=== PATIENT | female | born 1980 | race Two or more races ===

== ENCOUNTER 2020-02-01 03:27 | Emergency (ER) | payer SELFPAY ==
[~2020-02-01] VITALS: Ht 154.9 cm; Wt 66.0 kg
[2020-02-01] MEDS ORDERED: SODIUM CHLORIDE 0.9% 1,000 ML IV ONE ×2 (03:45→10:30)
[2020-02-01] MEDS ORDERED: KETOROLAC TROMETHAMINE 30 MG/ML VIAL IVP ONE (03:45)
[2020-02-01] MEDS ORDERED: IOVERSOL 350 MG/ML 100 ML VIAL ONE (03:53)
[2020-02-01] MEDS ORDERED: SODIUM CHLORIDE 0.9% 100 ML ONE (03:53)
[2020-02-01 04:17] LABS: BASOPHILS % (AUTO) 0.7 % (0.0-2.0); EOSINOPHILS % (AUTO) 1.8 % (1.0-6.0); HEMATOCRIT 42.9 % (36-46); HEMOGLOBIN 14.9 g/dL (12.0-16.0); MEAN CORPUSCULAR HGB CONC 34.6 G/dL (31.0-37.0); MEAN CORPUSCULAR VOLUME 81 fL (80-100); MONOCYTES # (AUTO) 1.1 K/uL (0.1-1.0); MONOCYTES % (AUTO) 7.3 % (2.0-9.0); NEUTROPHILS # (AUTO) 10.4 K/uL (1.8-7.7); NEUTROPHILS % (AUTO) 70.2 % (40.0-70.0); PLATELET COUNT (AUTO) 413 K/uL (150-450); RED BLOOD CELL COUNT(AUTO) 5.31 MIL/uL (4.00-5.20); RED CELL DISTRIBUTION WIDTH 12.5 % (11.5-14.5)
[2020-02-01 04:53] LABS: ALANINE AMINOTRANSFERASE 34 U/L (12-78); ALBUMIN 4.1 g/dL (3.4-5.0); ALKALINE PHOSPHATASE 130 U/L (46-116); ANION GAP 8 mmol/L (8-16); ASPARTATE AMINOTRANSFERASE 18 U/L (15-37); BILIRUBIN,TOTAL 0.7 mg/dL (0.1-1.0); CALCIUM, TOTAL 9.7 mg/dL (8.8-10.5); CARBON DIOXIDE 29 mmol/L (22-29); CHLORIDE 96 mmol/L (98-107); CREATININE 0.81 mg/dL (0.60-1.30); GLOMERULAR FILTR. RATE CALC > 60 mL/min (>60); GLUCOSE,RANDOM 119 mg/dL (70-110); LIPASE 90 U/L (73-393); SODIUM SERUM 133 mmol/L (136-145); TOTAL PROTEIN, SERUM 9.3 g/dL (6.4-8.2); UREA NITROGEN, BLOOD 8 mg/dL (7-18)
[2020-02-01 04:56] LABS: POTASSIUM 2.6 mmol/L (3.5-5.1)
[2020-02-01 05:05] LABS: HCG,QUANTITATIVE 1 mIU/mL (0-6)
[2020-02-01] MEDS ORDERED: POTASSIUM CHLORIDE 20 MEQ ER TABLET PO PRN (05:15)
[2020-02-01] MEDS: POTASSIUM CHL 10 MEQ/WATER 50 ML IV PRN ×4 (06:15→11:11)
[2020-02-01 06:55] LABS: APPEARANCE,URINE CLOUDY (CLEAR); BILIRUBIN,URINE NEGATIVE (NEGATIVE); GLUCOSE, URINE (UA) NEGATIVE (NEGATIVE); KETONES,URINE NEGATIVE (NEGATIVE); NITRATE,URINE POSITIVE (NEGATIVE); OCCULT BLOOD,URINE NEGATIVE (NEGATIVE); PH,URINE 6.5 (5.0-8.0); PROTEIN,URINE NEGATIVE (NEGATIVE); UROBILINOGEN,URINE 0.2 mg/dL (<=1.0)
[2020-02-01 06:59] LABS: LEUKOCYTE ESTERASE ,URINE MODERATE (NEGATIVE)
[2020-02-01 07:00] LABS: BACTERIA,URINE Many /HPF (None Seen); RBC,URINE 0-2 /HPF (0-2); SQUAMOUS EPITHELIAL CELL,UR Rare /LPF (None Seen)
[2020-02-01] MEDS ORDERED: NITROFURANTOIN MACROCRYSTAL 100 MG CAPSULE PO ONE (07:15)
[2020-02-01] MEDS ORDERED: CefTRIAXone SODIUM 1 GM/VIAL IM ONE (13:45)
[2020-02-01] MEDS ORDERED: DOXYCYCLINE HYCLATE 100 MG TABLET PO ONE (13:45)
[2020-02-01] MEDS ORDERED: LIDOCAINE 1% 10 ML VIAL INJ ONE ×3 (14:00)
[2020-02-01 17:44] VITALS: BP 141/96
== END 2020-02-01 17:48 | disposition home or self-care (01) ==
LOC: EMS 03:27
DX: N70.93 Salpingitis and oophoritis, unspecified (principal); R10.32 Left lower quadrant pain; E87.6 Hypokalemia; F17.210 Nicotine dependence, cigarettes, uncomplicated; F12.90 Cannabis use, unspecified, uncomplicated; Z88.0 Allergy status to penicillin
CPT/HCPCS: 36415; 74177; 76830; 76856; 80053; 81001; 83690; 84132; 84702; 85025; 87086; 87491; 87591; 93005; 96361; 96365; 96366; 96372; 96375; 99285; J0696; J1885; J3480; J3490; J7030; J7050; Q9967

== ENCOUNTER 2020-02-08 16:22 | Emergency (ER) | payer SELFPAY ==
[~2020-02-08] VITALS: Ht 154.9 cm; Wt 68.2 kg
[2020-02-08 16:39] VITALS: BP 154/96
== END 2020-02-08 17:49 | disposition home or self-care (01) ==
LOC: EMS 16:27
DX: A64 Unspecified sexually transmitted disease (principal); F12.90 Cannabis use, unspecified, uncomplicated; F17.210 Nicotine dependence, cigarettes, uncomplicated; Z88.0 Allergy status to penicillin
CPT/HCPCS: 87491; 87591

== ENCOUNTER 2021-06-27 02:35 | Emergency (ER) | payer MEDICAID ==
[~2021-06-27] VITALS: Ht 157.5 cm; Wt 72.1 kg
[2021-06-27 02:36] VITALS: BP 172/107
[2021-06-27] MEDS ORDERED: CLIN-142 PO (03:12)
[2021-06-27] MEDS ORDERED: CLINDAMYCIN HCL 150 MG CAPSULE PO ONE (03:15)
[2021-06-27] MEDS ORDERED: KETOROLAC TROMETHAMINE 30 MG/ML VIAL IM ONE (03:15)
== END 2021-06-27 03:40 | disposition home or self-care (01) ==
LOC: EMS 02:36
DX: K03.81 Cracked tooth (principal); F17.210 Nicotine dependence, cigarettes, uncomplicated; F12.90 Cannabis use, unspecified, uncomplicated; F15.90 Other stimulant use, unspecified, uncomplicated; Z88.0 Allergy status to penicillin
CPT/HCPCS: 81025; 96372; 99283; J1885

== ENCOUNTER 2022-10-19 06:25 | Emergency (ER) | payer MEDICAID ==
[~2022-10-19] VITALS: Ht 157.5 cm; Wt 75.9 kg
[~2022-10-19 06:25] MED LIST: CLIN-142 PO
[2022-10-19] MEDS ORDERED: TraMADol HCL 50 MG TABLET PO ONE (06:45)
[2022-10-19 06:59] LABS: BASOPHILS % (AUTO) 0.5 % (0.0-2.0); EOSINOPHILS % (AUTO) 0.8 % (1.0-6.0); HEMATOCRIT 36.2 % (36-46); HEMOGLOBIN 11.9 g/dL (12.0-16.0); LYMPHOCYTES # (AUTO) 1.2 K/uL (1.0-4.8); MEAN CORPUSCULAR HEMOGLOBIN 26.3 pg (26.0-34.0); MEAN CORPUSCULAR HGB CONC 32.9 G/dL (31.0-37.0); MEAN CORPUSCULAR VOLUME 80 fL (80-100); MONOCYTES # (AUTO) 0.5 K/uL (0.1-1.0); MONOCYTES % (AUTO) 8.1 % (2.0-9.0); NEUTROPHILS # (AUTO) 4.8 K/uL (1.8-7.7); NEUTROPHILS % (AUTO) 72.6 % (40.0-70.0); PLATELET COUNT (AUTO) 492 K/uL (150-450); RED BLOOD CELL COUNT(AUTO) 4.53 MIL/uL (4.00-5.20); RED CELL DISTRIBUTION WIDTH 13.2 % (11.5-14.5)
[2022-10-19 07:12] LABS: ANION GAP 8 mmol/L (8-16); CALCIUM, TOTAL 8.5 mg/dL (8.8-10.5); CARBON DIOXIDE 28 mmol/L (22-29); CHLORIDE 102 mmol/L (98-107); CREATININE 0.88 mg/dL (0.60-1.30); GLOMERULAR FILTR. RATE CALC > 60 mL/min (>60); GLUCOSE,RANDOM 149 mg/dL (70-110); POTASSIUM 3.8 mmol/L (3.5-5.1); SODIUM SERUM 137 mmol/L (136-145)
[2022-10-19 07:17] LABS: ALANINE AMINOTRANSFERASE 34 U/L (12-78); ALKALINE PHOSPHATASE 136 U/L (46-116); ASPARTATE AMINOTRANSFERASE 31 U/L (15-37); BILIRUBIN,TOTAL 0.3 mg/dL (0.1-1.0); TOTAL PROTEIN, SERUM 7.4 g/dL (6.4-8.2)
[2022-10-19 08:51] VITALS: BP 150/79; PULSE 96; RESP 16; TEMP 98.6
[2022-10-19] MEDS ORDERED: IBUP-1492 PO (08:52)
== END 2022-10-19 09:01 | disposition home or self-care (01) ==
LOC: EMS 06:25
DX: M79.661 Pain in right lower leg (principal); S86.891A Other injury of other muscle(s) and tendon(s) at lower leg level, right leg, initial encounter; F15.10 Other stimulant abuse, uncomplicated; F17.210 Nicotine dependence, cigarettes, uncomplicated; F12.90 Cannabis use, unspecified, uncomplicated; Z88.0 Allergy status to penicillin; X58.XXXA Exposure to other specified factors, initial encounter; Y93.89 Activity, other specified; Y92.89 Other specified places as the place of occurrence of the external cause; Y99.8 Other external cause status
CPT/HCPCS: 80053; 85025; 85379; 93971; 99284

== ENCOUNTER 2022-11-03 18:37 | Emergency (ER) | payer MEDICAID ==
[~2022-11-03] VITALS: Ht 157.5 cm; Wt 77.3 kg
[~2022-11-03 18:37] MED LIST changes: +IBUP-1492 PO
[2022-11-03 18:50] VITALS: BP 148/98; PULSE 99; RESP 20; TEMP 98.8
== END 2022-11-03 21:00 | disposition left against medical advice (07) ==
LOC: EMS 18:38
DX: M79.671 Pain in right foot (principal); Z53.21 Procedure and treatment not carried out due to patient leaving prior to being seen by health care provider
CPT/HCPCS: 99281; Z7502

== ENCOUNTER 2022-11-05 04:34 | Emergency (ER) | payer MEDICAID ==
[~2022-11-05] VITALS: Ht 157.5 cm; Wt 63.0 kg
[2022-11-05] MEDS ORDERED: KETOROLAC TROMETHAMINE 60 MG/2 ML VIAL IM ONE (06:30)
[2022-11-05 10:16] VITALS: TEMP 97.7
[2022-11-05 12:09] VITALS: BP 132/89; PULSE 88; RESP 16
== END 2022-11-05 12:12 | disposition home or self-care (01) ==
LOC: EMS 04:36
DX: M79.604 Pain in right leg (principal); F12.90 Cannabis use, unspecified, uncomplicated; F15.90 Other stimulant use, unspecified, uncomplicated; F17.210 Nicotine dependence, cigarettes, uncomplicated; Z88.0 Allergy status to penicillin
CPT/HCPCS: 99283; 73590; 96372; J1885

== ENCOUNTER 2022-11-14 23:22 | Emergency (ER) | payer MEDICAID ==
[~2022-11-14] VITALS: Ht 157.5 cm; Wt 76.0 kg
[2022-11-14 23:32] VITALS: TEMP 98.9
[2022-11-14 23:50] VITALS: BP 139/88; PULSE 89; RESP 15
[2022-11-15] MEDS ORDERED: DiphenhydrAMINE HCL 25 MG CAPSULE PO ONE (00:15)
[2022-11-15] MEDS ORDERED: LORazepam 1 MG TABLET PO ONE (00:15)
[2022-11-15] MEDS ORDERED: DiphenhydrAMINE HCL 50 MG CAPSULE PO ONE (00:30)
[2022-11-15] MEDS ORDERED: LORazepam 0.5 MG TABLET PO ONE (00:30)
[2022-11-15] MEDS ORDERED: DIPH25CA85 PO (01:46)
[2022-11-15] MEDS ORDERED: PRED-554 PO (01:47)
== END 2022-11-15 02:21 | disposition home or self-care (01) ==
LOC: EMS 23:25
DX: L30.9 Dermatitis, unspecified (principal); F41.9 Anxiety disorder, unspecified; F17.210 Nicotine dependence, cigarettes, uncomplicated; F12.90 Cannabis use, unspecified, uncomplicated; Z88.0 Allergy status to penicillin
CPT/HCPCS: 99283

== ENCOUNTER 2022-11-26 05:18 | Emergency (ER) | payer MEDICAID ==
[~2022-11-26] VITALS: Ht 157.5 cm; Wt 75.0 kg
[~2022-11-26 05:18] MED LIST changes: +DIPH25CA85 PO; +PRED-554 PO
[2022-11-26 05:24] VITALS: TEMP 98.5
[2022-11-26] MEDS: DiphenhydrAMINE HCL 25 MG CAPSULE PO ONE (06:40)
[2022-11-26] MEDS: PredniSONE 20 MG TABLET PO ONE (06:40)
[2022-11-26] MEDS ORDERED: PRED-554 PO (06:44)
[2022-11-26] MEDS ORDERED: DIPH25CA85 PO (06:44)
[2022-11-26 06:51] VITALS: BP 137/84; PULSE 87; RESP 14
== END 2022-11-26 06:53 | disposition home or self-care (01) ==
LOC: EMS 05:20
DX: R21 Rash and other nonspecific skin eruption (principal); F41.9 Anxiety disorder, unspecified; F17.210 Nicotine dependence, cigarettes, uncomplicated; F12.90 Cannabis use, unspecified, uncomplicated; F15.90 Other stimulant use, unspecified, uncomplicated; Z88.0 Allergy status to penicillin
CPT/HCPCS: 99283; J7512

== ENCOUNTER 2023-01-18 03:23 | Emergency (ER) | payer MEDICAID ==
[~2023-01-18] VITALS: Ht 157.5 cm; Wt 75.0 kg
[2023-01-18 03:38] VITALS: TEMP 98.2
[2023-01-18 06:37] VITALS: BP 145/82; PULSE 79; RESP 18
[2023-01-18] MEDS ORDERED: BACI28.410 TP (07:28)
[2023-01-18] MEDS ORDERED: ACET-66 PO (07:28)
[2023-01-18] MEDS ORDERED: IBUP-1554 PO (07:28)
[2023-01-18] MEDS ORDERED: ACETAMINOPHEN 500 MG TABLET PO ONE (07:30)
== END 2023-01-18 07:48 | disposition home or self-care (01) ==
LOC: EMS 03:24
DX: T21.21XA Burn of second degree of chest wall, initial encounter (principal); R21 Rash and other nonspecific skin eruption; F20.9 Schizophrenia, unspecified; F41.9 Anxiety disorder, unspecified; F17.210 Nicotine dependence, cigarettes, uncomplicated; F12.90 Cannabis use, unspecified, uncomplicated; F15.90 Other stimulant use, unspecified, uncomplicated; Z59.00 Homelessness unspecified; Z88.0 Allergy status to penicillin
CPT/HCPCS: 99282; Z7502

== ENCOUNTER 2023-01-31 00:19 | Emergency (ER) | payer MEDICAID ==
[~2023-01-31] VITALS: Ht 157.5 cm; Wt 80.0 kg
[~2023-01-31 00:19] MED LIST changes: +ACET-66 PO; +BACI28.410 TP; +IBUP-1554 PO
[2023-01-31] MEDS ORDERED: SULF-261 PO (01:25)
[2023-01-31] MEDS ORDERED: CIPOTIC AD (01:25)
[2023-01-31] MEDS ORDERED: IBUP-1492 PO (01:25)
[2023-01-31 01:30] VITALS: BP 173/90; PULSE 84; RESP 20; TEMP 98.3
[2023-01-31] MEDS ORDERED: LIDOCAINE/PF 1% 2 ML VIAL IM ONE (01:30)
[2023-01-31] MEDS ORDERED: SULFAMETHOX/TRIMETH DS 800-160 MG/TABLET PO ONE (01:30)
[2023-01-31] MEDS ORDERED: IBUPROFEN 800 MG TABLET PO ONE (01:30)
[2023-01-31] MEDS ORDERED: CefTRIAXone SODIUM 1 GM/VIAL IM ONE (01:30)
== END 2023-01-31 02:30 | disposition home or self-care (01) ==
LOC: EMS 00:20
DX: H66.91 Otitis media, unspecified, right ear (principal); H60.501 Unspecified acute noninfective otitis externa, right ear; H60.11 Cellulitis of right external ear; A63.0 Anogenital (venereal) warts; F41.9 Anxiety disorder, unspecified; F20.9 Schizophrenia, unspecified; F17.210 Nicotine dependence, cigarettes, uncomplicated; F12.90 Cannabis use, unspecified, uncomplicated; F15.90 Other stimulant use, unspecified, uncomplicated; Z88.0 Allergy status to penicillin
CPT/HCPCS: 99283; 96372; J0696; J3490

== ENCOUNTER 2023-08-08 09:57 | Emergency (ER) | payer MEDICAID ==
[~2023-08-08] VITALS: Ht 167.6 cm; Wt 67.3 kg
[~2023-08-08 09:57] MED LIST changes: +CIPOTIC AD; +SULF-261 PO
[2023-08-08 10:07] VITALS: TEMP 98.4
[2023-08-08] MEDS: LIDOCAINE 1% 10 ML VIAL SQ ONE (12:21)
[2023-08-08 13:33] VITALS: BP 129/82; PULSE 89; RESP 18
[2023-08-08] MEDS ORDERED: DOXY-354 PO (13:52)
[2023-08-08] MEDS ORDERED: SULF-261 PO (13:52)
[2023-08-08] MEDS ORDERED: PERCT PO (13:53)
[2023-08-08] MEDS: DOXYCYCLINE HYCLATE 100 MG TABLET PO ONE (14:03)
[2023-08-08] MEDS: OxyCODONE HCL/ACETAMINOPHEN 5-325 MG TABLET PO ONE (14:03)
[2023-08-08] MEDS: SULFAMETHOX/TRIMETH DS 800-160 MG/TABLET PO ONE (14:03)
== END 2023-08-08 14:35 | disposition home or self-care (01) ==
LOC: EMS 10:00
DX: N76.4 Abscess of vulva (principal); F41.9 Anxiety disorder, unspecified; F20.9 Schizophrenia, unspecified; F17.210 Nicotine dependence, cigarettes, uncomplicated; F12.90 Cannabis use, unspecified, uncomplicated; F15.90 Other stimulant use, unspecified, uncomplicated; Z88.0 Allergy status to penicillin
CPT/HCPCS: 99284; 56405; J3490; 10060

== ENCOUNTER 2023-12-17 16:36 | Emergency (ER) | payer MEDICAID ==
[~2023-12-17] VITALS: Ht 157.5 cm; Wt 73.6 kg
[~2023-12-17 16:36] MED LIST changes: -ACET-66 PO; -BACI28.410 TP; -CIPOTIC AD; -CLIN-142 PO; -DIPH25CA85 PO; +DOXY-354 PO; -IBUP-1492 PO; -IBUP-1554 PO; +PERCT PO; -PRED-554 PO
[2023-12-17 16:47] VITALS: TEMP 98.8
[2023-12-17] MEDS ORDERED: DOXY-354 PO (17:25)
[2023-12-17] MEDS: DOXYCYCLINE HYCLATE 100 MG TABLET PO ONE (17:41)
[2023-12-17] MEDS: BACITRACIN 0.9 GM PACKET OINTMENT TP ONE (17:41)
[2023-12-17] MEDS: PERTUSS(ACELL),DIPH,TET/PF 0.5 ML SYRINGE [ADULT] IM. ONE (17:44)
[2023-12-17] MEDS: RABIES VACCINE, HUMAN DIPLOID/PF 2.5 UNITS/ML VIAL IM. ONE (17:49)
[2023-12-17] MEDS: RABIES IMMUNE GLOBULIN/PF 150 UNIT/ML 10 ML VIAL IM. ONE (17:55)
[2023-12-17 18:55] VITALS: BP 141/94; PULSE 86; RESP 16; O2SAT 98
== END 2023-12-17 20:10 | disposition home or self-care (01) ==
LOC: EMS 16:39
DX: S51.852A Open bite of left forearm, initial encounter (principal); F41.9 Anxiety disorder, unspecified; F17.210 Nicotine dependence, cigarettes, uncomplicated; F20.9 Schizophrenia, unspecified; F12.90 Cannabis use, unspecified, uncomplicated; F15.90 Other stimulant use, unspecified, uncomplicated; Z88.0 Allergy status to penicillin; Z23 Encounter for immunization; Z20.3 Contact with and (suspected) exposure to rabies; W54.0XXA Bitten by dog, initial encounter; Y93.89 Activity, other specified; Y92.89 Other specified places as the place of occurrence of the external cause; Y99.8 Other external cause status
CPT/HCPCS: 90375; 90471; 90472; 90675; 90715; 96372; 99284